=== PATIENT | female | born 1955 | race Caucasian/White ===

== ENCOUNTER 2018-07-27 10:21 | Emergency (ER) | payer OTHER, MEDICAID ==
[~2018-07-27] VITALS: Ht 154.9 cm; Wt 63.5 kg
[2018-07-27] MEDS ORDERED: NEURONTIN 400400 M1 PO (10:26)
[2018-07-27 11:00] LABS: ABSOLUTE LYMPHOCYTES 1.1 thou/uL (0.8-5.3); ABSOLUTE MONOCYTES 0.4 thou/uL (0.0-1.2); ABSOLUTE NEUTROPHILS 3.7 thou/uL (1.6-8.1); BASOPHILS 0.2 %; HEMATOCRIT 45.3 % (37.0-47.0); HEMOGLOBIN 15.2 gm/dL (12.0-15.0); LYMPHOCYTES 21.8 %; MCH 29.9 pg (26.0-34.0); MCHC 33.6 g/dL (28.0-37.0); MCV 89.1 fL (80.0-100.0); MONOCYTES 8.5 %; MPV 8.2 fl. (7.2-11.1); NUCLEATED RBCS 0 /100WBC; PLATELET COUNT* 234 thou/uL (150-400); POLYS 69.5 %; RBC 5.08 mil/uL (4.20-5.00); RDW-CV 13.3 % (10.5-14.5); WBC 5.3 thou/uL (4.0-11.0)
[2018-07-27 11:11] LABS: ANION GAP 3 mmol/L (7-16); BUN 10 mg/dL (7-18); CALCIUM 8.9 mg/dL (8.5-10.1); CHLORIDE 105 mmol/L (98-107); CO2 33 mmol/L (21-32); CREATININE 0.8 mg/dL (0.6-1.3); GLUCOSE 112 mg/dL (70-99); POTASSIUM 4.1 mmol/L (3.5-5.1); SODIUM 141 mmol/L (136-145)
[2018-07-27 11:15] LABS: APTT 24.1 Seconds (25.0-31.3); INR 0.9; PROTIME 9.3 Seconds (9.20-11.50)
[2018-07-27 11:18] LABS: ALBUMIN 3.1 g/dL (3.4-5.0); ALKALINE PHOSPHATASE 55 U/L (46-116); LIPASE 92 U/L (73-393); SGOT 15 U/L (15-37); SGPT 19 U/L (30-65); TOTAL BILIRUBIN 0.5 mg/dL (<0.1-1.0); TOTAL PROTEIN 6.1 g/dL (6.4-8.2); TROPONIN-I LEVEL <0.06 ng/mL (<0.06)
[2018-07-27 13:09] LABS: URINE BILIRUBIN NEGATIVE (Negative); URINE BLOOD NEGATIVE (Negative); URINE CLARITY CLEAR; URINE COLOR YELLOW; URINE GLUCOSE-RANDOM NEGATIVE (Negative); URINE KETONES NEGATIVE (Negative); URINE LEUKOCYTES-REFLEX TRACE (Negative); URINE NITRITE-REFLEX NEGATIVE (Negative); URINE PROTEIN NEGATIVE (Negative)
[2018-07-27 13:16] LABS: BACTERIA-REFLEX 1-9 Few /HPF (None Seen); CASTS None Seen /LPF (None Seen); CRYSTALS None Seen /LPF (None Seen); MUCUS 0-3 Light strn/LPF (None Seen); SQUAMOUS 4-10 Moderate /LPF (0-3); URINE RBC 0-2 Rare /HPF (0-2); URINE WBC-REFLEX 0-5 Rare /HPF (0-5)
[2018-07-27] MEDS ORDERED: ZOFRAN ODT4 MG PO (13:22)
[2018-07-27 13:33] VITALS: BP 141/68
--- NOTE | 2018-07-27 15:40 | EKG ---
[place] [address] ELECTROCARDIOGRAM REPORT Name: NIKKI AMARAL Room: [facility] ([place], [place])#: [id number] Admission: 07/27/18 Attend Phys: Discharge: 07/27/18 Date of : 51 Report #: [id number] THIS REPORT FOR: //name// [facility] ED Test Date: 2018-07-27 Test Time: 10:28:45 Pat Name: NIKKI AMARAL Department: Room: Gender: F Assurance Sourcing Manager: : 1955 Requested By: Lela Maldonado Order Number: [id number] MD: Nabor Suarez Measurements Intervals [place] Rate: 52 P: 50 UT: 151 QRS: -10 QRSD: 94 T: 46 QT: 435 QTc: 405 Interpretive Statements Sinus bradycardia Compared to ECG 06/18/2009 12:22:11 Sinus bradycardia still present Electronically Signed On 07-27-2018 15:40:39 [employer]IST[employer]IPAL by Nabor Suarez [email or web address] <ELECTRONICALLY SIGNED> By: Nabor Suarez MD, [facility] 07/27/18 1540 1027 27 Nabor Suarez MD, FACC /EPI
== END 2018-07-27 13:34 | disposition home or self-care (01) ==
LOC: M.ERS 10:21
PROVIDERS: Personal Emergency Response Attendant
DX: R11.2 Nausea with vomiting, unspecified (principal); R19.7 Diarrhea, unspecified; M79.7 Fibromyalgia; Z98.890 Other specified postprocedural states

== ENCOUNTER 2020-07-12 08:56 | Inpatient (IN) | payer OTHER, MEDICAID ==
[~2020-07-12] VITALS: Ht 154.9 cm; Wt 81.6 kg
[~2020-07-12 08:56] MED LIST: NEURONTIN 400400 M1 PO; ZOFRAN ODT4 MG PO
[2020-07-12 09:11] VITALS: BP 169/86
[2020-07-12 09:52] LABS: ABSOLUTE LYMPHOCYTES 0.8 thou/uL (0.8-5.3); ABSOLUTE MONOCYTES 0.8 thou/uL (0.0-1.2); ABSOLUTE NEUTROPHILS 6.4 thou/uL (1.6-8.1); BASOPHILS 0.3 %; HEMATOCRIT 39.6 % (37.0-47.0); HEMOGLOBIN 13.2 gm/dL (12.0-15.0); LYMPHOCYTES 10.4 %; MCH 29.3 pg (26.0-34.0); MCHC 33.4 g/dL (28.0-37.0); MCV 87.5 fL (80.0-100.0); MONOCYTES 10.4 %; MPV 7.6 fl. (7.2-11.1); NUCLEATED RBCS 0 /100WBC; PLATELET COUNT* 185 thou/uL (150-400); POLYS 78.9 %; RBC 4.52 mil/uL (4.20-5.00); RDW-CV 13.2 % (10.5-14.5); WBC 8.1 thou/uL (4.0-11.0)
[2020-07-12 09:54] LABS: BE 0.2 mmol/L (-2 to +3); PCO2 37.1 mmHg (35.0-45.0); PO2 74.8 mmHg (75.0-100.0); pH 7.432 (7.340-7.450)
[2020-07-12 10:01] LABS: CALCIUM 7.9 mg/dL (8.5-10.1); CREATININE 0.8 mg/dL (0.6-1.3); POTASSIUM 3.9 mmol/L (3.5-5.1)
[2020-07-12 10:05] LABS: ALBUMIN 3.1 g/dL (3.4-5.0); MAGNESIUM 1.6 mg/dL (1.8-2.4); TOTAL BILIRUBIN 0.8 mg/dL (<0.1-1.0); TOTAL PROTEIN 6.3 g/dL (6.4-8.2)
[2020-07-12 11:37] LABS: URINE BILIRUBIN NEGATIVE (Negative); URINE BLOOD NEGATIVE (Negative); URINE CLARITY CLEAR; URINE COLOR YELLOW; URINE GLUCOSE-RANDOM NEGATIVE (Negative); URINE KETONES NEGATIVE (Negative); URINE LEUKOCYTES-REFLEX NEGATIVE (Negative); URINE NITRITE-REFLEX NEGATIVE (Negative); URINE PROTEIN NEGATIVE (Negative); URINE UROBILINOGEN 0.2 E.U./dl (0.2-1.0)
[2020-07-12 13:44] VITALS: BP 122/53
[2020-07-12 14:00] VITALS: BP 128/60
[2020-07-12 20:30] VITALS: BP 113/62
[2020-07-12 23:30] VITALS: BP 130/56
[2020-07-13 04:53] VITALS: BP 150/77
[2020-07-13 08:00] VITALS: BP 148/70
[2020-07-13 12:00] VITALS: BP 126/61
[2020-07-13] MEDS ORDERED: CLONAZEPAM 0.50.5 M1 PO (13:28)
[2020-07-13] MEDS ORDERED: DESVENLAFAXINE100 MG PO (13:29)
[2020-07-13] MEDS ORDERED: LINZESS290 MCG PO (13:31)
[2020-07-13 16:00] VITALS: BP 118/76
[2020-07-13 17:40] LABS: HEMATOCRIT 37.6 % (37.0-47.0); HEMOGLOBIN 12.8 gm/dL (12.0-15.0); MCH 29.9 pg (26.0-34.0); MCHC 33.9 g/dL (28.0-37.0); MCV 88.1 fL (80.0-100.0); MPV 8.4 fl. (7.2-11.1); RBC 4.27 mil/uL (4.20-5.00); WBC 7.3 thou/uL (4.0-11.0)
[2020-07-13 17:46] LABS: CALCIUM 8.5 mg/dL (8.5-10.1); CREATININE 0.8 mg/dL (0.6-1.3); MAGNESIUM 2.1 mg/dL (1.8-2.4)
[2020-07-13 20:05] VITALS: BP 124/49
[2020-07-14 00:03] VITALS: BP 117/52
[2020-07-14 04:50] VITALS: BP 124/62
[2020-07-14 07:12] LABS: ABSOLUTE LYMPHOCYTES 0.8 thou/uL (0.8-5.3); ABSOLUTE MONOCYTES 0.6 thou/uL (0.0-1.2); ABSOLUTE NEUTROPHILS 8.2 thou/uL (1.6-8.1); BASOPHILS 0.1 %; HEMATOCRIT 39.1 % (37.0-47.0); HEMOGLOBIN 13.3 gm/dL (12.0-15.0); MCH 29.7 pg (26.0-34.0); MCV 87.6 fL (80.0-100.0); MONOCYTES 6.3 %; MPV 8.8 fl. (7.2-11.1); NUCLEATED RBCS 0 /100WBC; PLATELET COUNT* 201 thou/uL (150-400); POLYS 85.6 %; RBC 4.47 mil/uL (4.20-5.00); RDW-CV 13.2 % (10.5-14.5); WBC 9.5 thou/uL (4.0-11.0)
[2020-07-14 07:28] LABS: APTT 27.9 Seconds (25.0-31.3); INR 0.9; PROTIME 10.1 Seconds (9.20-11.50)
[2020-07-14 07:31] LABS: CALCIUM 8.6 mg/dL (8.5-10.1); CREATININE 0.9 mg/dL (0.6-1.3); MAGNESIUM 1.9 mg/dL (1.8-2.4); POTASSIUM 3.7 mmol/L (3.5-5.1); TOTAL BILIRUBIN 0.4 mg/dL (<0.1-1.0); TOTAL PROTEIN 6.3 g/dL (6.4-8.2)
[2020-07-14 08:00] VITALS: BP 140/60
[2020-07-14] MEDS ORDERED: VENTOLIN HFA 1818 GM INH (09:43)
[2020-07-14] MEDS ORDERED: PREDNISONE 10 M10 MG PO (09:43)
[2020-07-14] MEDS ORDERED: CEFDINIR300 MG PO (09:43)
[2020-07-14 11:32] VITALS: BP 140/60
[2020-07-14 12:00] VITALS: BP 121/63
--- NOTE | 2020-07-14 21:17 | CON ---
[address] [address] CONSULTATION Name: NIKKI AMARAL Room: [address] IN [facility]#: [id number] Admission: 07/12/20 Attend Phys: Dyan Nava Discharge: 07/14/20 Date of : 51 Report #: [id number] THIS REPORT FOR: cc: Vidya Monreal Maggie M. DO ~ John Devlin MD DATE OF SERVICE: 07/13/2020 REQUESTING PHYSICIAN: Dr. Seaman. INDICATION FOR CONSULTATION: COVID 19/evaluation regarding whether remdesivir should be started at this time. HISTORY OF PRESENT ILLNESS: This is a 64-year-old female. She does have a previous history of smoking. The patient, however, has not previously been diagnosed with COPD. The patient also is overweight with a body mass index of 34 and her body habitus does raise the possibility of obstructive sleep apnea, again not previously diagnosed. The patient is now admitted with a respiratory tract illness which has been lasted for the last 3 weeks. The patient has had increase in shortness of breath, particularly on exertion, also has had some orthopnea. The patient has been wheezing at times. She has been coughing. She at times has had sputum. The color of sputum is not known. She has had body aches and pains. She has had headaches. She reports that she has been having chills, although she did not record a fever at home. When this illness began the patient reports that she had a test for COVID-19 performed, which came back negative. She subsequently took 2 rounds of antibiotics. She also took a steroid taper; however, she got worse again and therefore eventually came to the Emergency Room here. Since arrival, the patient has been treated with broad-spectrum antibiotics in addition to Decadron. She overall is feeling better and reports improvement in her shortness of breath and cough. The patient is reported to be short of breath and bronchospastic on initial presentation. Also initially, she required 2 liters of oxygen to maintain O2 saturation in the low 90s. The patient currently is not on supplemental oxygen. REVIEW OF SYSTEMS: The patient answered to the negative for 12 questions for review of systems. PAST MEDICAL HISTORY: Fibromyalgia, three C-sections. Body mass index elevated [place] 34. [place] [address] CONSULTATION Name: NIKKI AMARAL Room: [address]#: [id number] Admission: 07/12/20 Attend Phys: Dyan Nava Discharge: 07/14/20 Date of : 51 Report #: [id number] SOCIAL HISTORY: There is an extensive history of smoking. She has now discontinued. No known history of heavy alcohol use or illegal drug use. CURRENT MEDICATIONS: List in [facility] reviewed. HOME MEDICATIONS: List in [facility] reviewed. FAMILY HISTORY: No pertinent family history. PHYSICAL EXAMINATION: GENERAL: She is alert, awake and oriented. VITAL SIGNS: Has a pulse of 50 and a blood pressure of 118/76. She is not on supplemental oxygen, her O2 saturation has been around 93%, according to the nurse, temperature is 37.0, blood pressure 118/76. HEENT: Head is normocephalic and atraumatic. NECK: Does not show raised JVP, asymmetry, mass or lymph nodes. CHEST: Symmetrical expansion on inspection and palpation. On auscultation, chest is clear. HEART: Regular. There is no murmur. ABDOMEN: Soft and nontender. EXTREMITIES: Lower extremities show no edema and no calf tenderness. SKIN: Dry and intact. NEUROLOGICAL: Moves all extremities bilaterally equally and spontaneously with no focal deficit identified. LABORATORY DATA: The patient's chest x-ray is reviewed. It does show interstitial infiltrates consistent with COVID-19. A superimposed bacterial infection can also give this picture. The patient's lab work is in [facility] and this is reviewed. I repeated some labs now as well and then reviewed them. Arterial blood gas in [facility] reviewed. ASSESSMENT AND PLAN: 1. COVID-19. The patient is now feeling better. She is also not on supplemental oxygen and reports significant improvement in cough since she was admitted; therefore, I decided not to start remdesivir at this time. Certainly, I will have a very low threshold of starting remdesivir should her condition worsen. The patient's clinical picture is consistent with a favorable response to Decadron. We will continue Decadron. Should she deteriorate, in that case, I will also consider convalescent plasma. 2. Bronchospasm/possible underlying chronic obstructive pulmonary disease. The history also is consistent with the patient, initially having significant bronchospasm, which is now better. Again, she is on Decadron above. We will continue. I will go ahead and add nebulized bronchodilators. The patient may benefit later from a further workup to evaluate as to whether she has underlying [address] [address] CONSULTATION Name: NIKKI AMARAL Room: [address] IN [facility].#: [id number] Admission: 07/12/20 Attend Phys: Dyan Nava Discharge: 07/14/20 Date of : 51 Report #: [id number] chronic obstructive pulmonary disease. 3. Pulmonary infiltrates. She is on azithromycin and ceftriaxone. I continued the same, if we are able to get a sputum, I would recommend getting a sample, also recommend checking a nasal swab for methicillin-resistant Staphylococcus aureus. 4. Obesity, body mass index is 34, as above, her body habitus also has a little bit of possibility of underlying obstructive sleep apnea and therefore, if there is deterioration in her condition, then I will have a low threshold of using a BiPAP. 5. Evaluation for thromboembolic phenomena. The patient currently is on full dose Lovenox. I continued the same for now. I ordered a D-dimer with the morning labs. I will review tomorrow. In case, D-dimer is elevated, then we will assess as to whether we should proceed with a workup for thromboembolism. Thanks for this consultation. <ELECTRONICALLY SIGNED> By: John Devlin MD 07/14/207 1848 09John Devlin MD /nt
== END 2020-07-14 12:45 | disposition home or self-care (01) | DRG 177 ==
LOC: M.ERS 08:56 → M.TBA-ER 11:53 → M.ORTHSURG 11:53
PROVIDERS: Internal Medicine Critical Care Medicine; Personal Emergency Response Attendant; ADMIT Internal Medicine; ATTEND Internal Medicine
DX: U07.1 COVID-19 (principal); J12.89 Other viral pneumonia; J96.01 Acute respiratory failure with hypoxia; E87.1 Hypo-osmolality and hyponatremia; M79.7 Fibromyalgia; E66.9 Obesity, unspecified; J98.01 Acute bronchospasm; Z98.891 History of uterine scar from previous surgery; Z68.34 Body mass index [BMI] 34.0-34.9, adult; Z79.899 Other long term (current) drug therapy; Z87.891 Personal history of nicotine dependence

== ENCOUNTER → 2020-12-16 | Outpatient (CLI) | payer OTHER, MEDICAID ==
[~2020-12-16] MED LIST changes: +CEFDINIR300 MG PO; +CLONAZEPAM 0.50.5 M1 PO; +DESVENLAFAXINE100 MG PO; +LINZESS290 MCG PO; +PREDNISONE 10 M10 MG PO; +VENTOLIN HFA 1818 GM INH
== END ==
LOC: M.LAB 16:36
PROVIDERS: ATTEND Internal Medicine Critical Care Medicine
DX: R07.1 Chest pain on breathing (principal)

== ENCOUNTER 2020-12-24 12:15 | Emergency (ER) | payer OTHER, MEDICAID ==
[~2020-12-24] VITALS: Ht 154.9 cm; Wt 77.1 kg
[2020-12-24 12:51] LABS: ABSOLUTE LYMPHOCYTES 1.6 thou/uL (0.8-5.3); ABSOLUTE MONOCYTES 0.6 thou/uL (0.0-1.2); ABSOLUTE NEUTROPHILS 3.6 thou/uL (1.6-8.1); BASOPHILS 0.7 %; EOSINOPHILS 0.5 %; HEMATOCRIT 40.5 % (37.0-47.0); HEMOGLOBIN 13.6 gm/dL (12.0-15.0); LYMPHOCYTES 27.6 %; MCHC 33.6 g/dL (28.0-37.0); MCV 86.4 fL (80.0-100.0); MONOCYTES 10.3 %; MPV 8.1 fl. (7.2-11.1); NUCLEATED RBCS 0 /100WBC; PLATELET COUNT* 239 thou/uL (150-400); POLYS 60.9 %; RBC 4.69 mil/uL (4.20-5.00); RDW-CV 14.7 % (10.5-14.5); WBC 5.9 thou/uL (4.0-11.0)
[2020-12-24 13:02] LABS: CREATININE 0.8 mg/dL (0.6-1.3); POTASSIUM 4.8 mmol/L (3.5-5.1)
[2020-12-24 13:14] LABS: ALBUMIN 3.6 g/dL (3.4-5.0); TOTAL BILIRUBIN 0.9 mg/dL (<0.1-1.0); TOTAL PROTEIN 6.7 g/dL (6.4-8.2)
[2020-12-24] MEDS ORDERED: IBUPROFEN 800800 M1 PO (14:38)
[2020-12-24] MEDS ORDERED: NORCO5 PO (14:38)
[2020-12-24] MEDS ORDERED: ZPAK PO (14:38)
[2020-12-24 14:45] VITALS: BP 121/58
--- NOTE | 2020-12-24 15:00 | EKG ---
[place] [address] ELECTROCARDIOGRAM REPORT Name: NIKKI AMARALE Room: [facility]#: [id number] Admission: 12/24/20 Attend Phys: Discharge: 12/24/20 Date of : 51 Date of Service: 12/24/20 1248 Report #: [id number] THIS REPORT FOR: //name// [facility] ED Test Date: 2020-12-24 Test Time: 12:48:27 Pat Name: NIKKI AMARAL Department: Room: Gender: F Installation Manager: [facility] : 1955 Requested By: Lakshmi Helm Order Number: [id number] MD: Nabor Suarez Measurements Intervals [place] Rate: 56 P: 46 VA: 140 QRS: -12 QRSD: 91 T: 83 QT: 432 QTc: 417 Interpretive Statements Sinus rhythm wandering baseline Compared to ECG 07/27/2018 10:28:45 no change Electronically Signed On 12-24-2020 14:59:54 CDT by Nabor Suarez [email or web address] <ELECTRONICALLY SIGNED> By: Nabor Suarez MD, [facility] 12/24/20 1459 1248 1248 Nabor Suarez MD, [facility] /EPI
== END 2020-12-24 14:46 | disposition home or self-care (01) ==
LOC: M.ERS 12:15
PROVIDERS: Nurse Practitioner Family
DX: R09.1 Pleurisy (principal); M79.7 Fibromyalgia; E66.9 Obesity, unspecified; Z98.890 Other specified postprocedural states; Z68.32 Body mass index [BMI] 32.0-32.9, adult; Z79.899 Other long term (current) drug therapy

== ENCOUNTER → 2021-01-02 | Outpatient (CLI) | payer OTHER, MEDICAID ==
[~2021-01-02] MED LIST changes: +IBUPROFEN 800800 M1 PO; +NORCO5 PO; +ZPAK PO
--- NOTE | 2021-01-07 08:38 | SLEEP ---
[address] [address] SLEEP STUDY REPORT Name: NIKKI AMARAL Room: [facility]#: [id number] Admission: 01/02/21 Attend Phys: John Devlin MD Discharge: Date of : 51 Report #: [id number] THIS REPORT FOR: cc: Vidya Monreal Maggie M. DO Pervez, Adeel MD ~ DOC #: [id number] John Devlin MD DATE OF STUDY: 01/02/2021 INDICATION FOR SLEEP STUDY: Daytime sleepiness with disturbed sleep at night with nocturnal hypoxemia on the previous sleep study. INTERPRETATION: Total duration of the study is 397 minutes out of which she was asleep for 247 minutes and the overall sleep efficiency of 62%. Sleep onset initially occurred around one hour and 19 minutes of lying down in bed and therefore was significantly delayed. There is no REM sleep recorded. N1 sleep duration is 4%, N2 duration is 59%, N3 duration is 37%. Body position data indicates the patient was observed asleep in the supine position for 113 minutes. The rest of the time the patient was in other positions. Her mean heart rate was 67. Periodic limb movement index is minimally elevated at 10.7. Most limb movements are not associated with arousals. Overall, arousal index is mildly elevated at 13.1. Recorded occasional sleep related respiratory events. These included 1 obstructive apnea in addition to 1 hypopnea and 1 respiratory effort related arousals. Overall, hypopnea index is 0.7. There are occasional desaturations recorded. O2 saturation, however, is mostly maintained at or above 88% with less than 88% for only 0.3 minutes during this sleep study. IMPRESSION: Obstructive sleep apnea is not detected during the sleep study. O2 saturation is also adequately maintained during the sleep study. This sleep study, however, is limited by reduction in sleep efficiency and the lack of REM sleep as well as delayed sleep onset. RECOMMENDATIONS: We will discuss further regarding the sleep complaints at the next office visit should the patient remain symptomatic. Due to limitations of the sleep study as above, I may consider repeat sleep study later on. Recommend avoiding driving and other activities requiring vigilance if drowsy. His entire sleep study was reviewed by a board certified sleep [place] [address] SLEEP STUDY REPORT Name: MUNIRNIKKI FREEMAN Room: [facility]#: [id number] Admission: 01/02/21 Attend Phys: John Devlin MD Discharge: Date of : 51 Report #: [id number] AP/ROSALIND/AMI <ELECTRONICALLY SIGNED> By: John Devlin MD 01/07/21 0838 2142 [id number] rene Perez
== END ==
LOC: M.SLEEPLAB 19:54
PROVIDERS: ATTEND Internal Medicine Critical Care Medicine
DX: G47.19 Other hypersomnia (principal)

== ENCOUNTER → 2021-01-14 | Outpatient (CLI) | payer OTHER, MEDICAID | LOC: M.MRI 07:57 | PROVIDERS: ATTEND Family Medicine | DX: M47.815 Spondylosis without myelopathy or radiculopathy, thoracolumbar region (principal); M99.53 Intervertebral disc stenosis of neural canal of lumbar region ==

== ENCOUNTER → 2021-02-04 | Outpatient (CLI) | payer OTHER, MEDICAID ==
[~2021-02-04] MED LIST changes: +AZELASTINE205.5 MCG/ NARES; +DICLOFENAC SOD100 G1 TOP; +LASIX 40 MG TAB40 MG PO; +LIPITOR40 MG PO; +LISINOPRIL20 MG PO; +MEDROLDOSEPACK PO; +ONDANSETRON ODT4 MG PO; +PROAIR HFA8.5 GM INH; +REQUIP 1 MG TABL1 M1 PO; +SPIRIVA18 MCG INH; +ZYRTEC10 M5 PO
--- NOTE | 2021-02-14 22:30 | SLEEP ---
[address] [address] SLEEP STUDY REPORT Name: NIKKI AMARAL Room: [facility]#: [id number] Admission: 02/04/21 Attend Phys: John Devlin MD Discharge: Date of : 51 Report #: [id number] THIS REPORT FOR: cc: Vidya Monreal Maggie M. DO Pervez, Adeel MD ~ DATE OF STUDY: 02/04/2021 PULMONARY FUNCTION TEST The FEV1/FVC ratio is normal at 80% with an FVC normal at 93%. FEV1 is normal at 97%. The FEF 25-75 is mildly decreased to 62%. After the administration of a bronchodilator, there is no significant increase in any of these values. The patient's FEV1 is 2.02 liters. This does not increase after the administration of a bronchodilator. The total lung capacity is normal at 81%. The residual volume is decreased to 57%. The DLCO as adjusted for hemoglobin is mildly decreased to 72%. IMPRESSION: 1. Minimal obstruction without evidence of reversibility. 2. Lung volumes are normal with the exception of a decreased residual volume as described above. This is likely a normal variant, but mild restriction can also lead to this picture. 3. The DLCO as adjusted for hemoglobin is mildly decreased to 72%. <ELECTRONICALLY SIGNED> By: John Devlin MD 02/14/21 [id number] rene Perez
== END ==
LOC: M.PUL 13:00
PROVIDERS: ATTEND Internal Medicine Critical Care Medicine
DX: R06.02 Shortness of breath (principal); Z88.8 Allergy status to other drugs, medicaments and biological substances

== ENCOUNTER → 2021-02-06 | Outpatient (CLI) | payer OTHER, MEDICAID | LOC: M.PC 10:42 | PROVIDERS: ATTEND Anesthesiology Pain Medicine | DX: J98.4 Other disorders of lung (principal); S22.42XD Multiple fractures of ribs, left side, subsequent encounter for fracture with routine healing; M51.25 Other intervertebral disc displacement, thoracolumbar region; M51.26 Other intervertebral disc displacement, lumbar region; M41.84 Other forms of scoliosis, thoracic region; G89.29 Other chronic pain; M47.817 Spondylosis without myelopathy or radiculopathy, lumbosacral region; I10 Essential (primary) hypertension; Z79.899 Other long term (current) drug therapy; Z86.16 Personal history of COVID-19; Z87.891 Personal history of nicotine dependence; Z88.8 Allergy status to other drugs, medicaments and biological substances; Z88.1 Allergy status to other antibiotic agents; Z88.2 Allergy status to sulfonamides; X58.XXXD Exposure to other specified factors, subsequent encounter ==

== ENCOUNTER → 2021-08-25 | Outpatient (CLI) | payer OTHER, MEDICAID | LOC: M.CT 12:44 | PROVIDERS: ATTEND Internal Medicine Critical Care Medicine | DX: J84.10 Pulmonary fibrosis, unspecified (principal); I25.10 Atherosclerotic heart disease of native coronary artery without angina pectoris; K80.20 Calculus of gallbladder without cholecystitis without obstruction; R91.8 Other nonspecific abnormal finding of lung field; Z87.81 Personal history of (healed) traumatic fracture ==